=== PATIENT | female | born 1990 | race Caucasian/White ===

== ENCOUNTER 2021-03-14 05:03 | Inpatient (IN) ==
[2021-03-14 05:49] LABS: Basophils % 0.6 %; Eosinophils # 0.1 K/mcL (0.0-0.6); Eosinophils % 1.8 %; Hematocrit 40.6 % (35.3-44.9); Hemoglobin 13.4 g/dL (11.5-15.4); Immature Granulocytes % 0.1 % (0-4); Lymphocytes # 2.1 K/mcL (0.6-4.6); Lymphocytes % 29.4 %; Mean Corpuscular Hemoglobin 31.8 pg (28.0-33.3); Mean Corpuscular Volume 96.4 fL (83.0-100.0); Mean Platelet Volume 9.7 fL (9.4-12.4); Monocytes # 0.6 K/mcL (0.0-1.3); Monocytes % 7.6 %; Neutrophils # 4.4 K/mcL (1.6-8.9); Platelet Count 206 K/mcL (140-400); Red Blood Count 4.21 M/mcL (3.82-4.97); Red Cell Distribution Width 13.5 % (11.5-14.5); Segmented Neutrophils % 60.5 %; White Blood Count 7.2 K/mcL (4.3-11.1)
[2021-03-14 06:08] LABS: Amphetamine Screen,Urine Negative ng/mL (Cutoff=1000); Barbiturate Screen,Urine Negative ng/mL (Cutoff=200)
[2021-03-14 06:09] LABS: Benzodiazepines Screen,Urine Negative ng/mL (Cutoff=300); Cannabinoid Screen,Urine Negative ng/mL (Cutoff = 50); Cocaine Screen,Urine Negative ng/mL (Cutoff= 300); Opiate Screen,Urine Negative ng/mL (Cutoff=300); Phencyclidine Screen,Urine Negative ng/mL (Cutoff=25)
[2021-03-14 06:13] LABS: Acetaminophen < 10 mcg/mL (10-20); Alanine Aminotransferase 6 Units/L (7-52); Albumin/Globulin Ratio 1.7 (1.1-2.2); Alkaline Phosphatase 70 Units/L (34-104); Aspartate Amino Transferase 11 Units/L (13-39); BUN/Creatinine Ratio 10 (6-26); Bilirubin,Indirect 0.2 mg/dL (0.0-1.0); Bilirubin,Total 0.2 mg/dL (0.3-1.0); Blood Urea Nitrogen 9 mg/dL (6-20); Calcium 8.8 mg/dL (8.6-10.3); Carbon Dioxide 24 mEq/L (23-29); Chloride 110 mEq/L (98-107); Globulin 2.4 g/dL (2.4-3.5); Glucose 92 mg/dL (70-105); Osmolality,Calculated 296 (280-300); Potassium 3.8 mEq/L (3.5-5.1); Salicylate < 2.5 mg/dL (15.0-30.0); Sodium 144 mEq/L (136-145); Total Protein 6.4 g/dL (6.4-8.9); eGFR For African Americans > 60 (> 60); eGFR For Non-African Americans > 60 (> 60)
[2021-03-14 06:15] LABS: Bilirubin,Urine Negative (Negative); Blood,Urine Negative (Negative); Clarity,Urine Clear (Clear); Color,Urine Colorless (Yellow); Glucose,Urine (UA) Normal (Normal); Ketones,Urine Negative (Negative); Leukocyte Esterase,Urine Negative (Negative); Nitrite,Urine Negative (Negative); PH,Urine 5.5 pH Units (5.0-8.0); Protein,Urine Negative (Neg-Trace); Specific Gravity,Urine 1.006 (1.010-1.025); Urobilinogen,Urine Normal (Normal)
[2021-03-14] MEDS ORDERED: 0.9 % Sodium Chloride 1,000 ML ONE (06:26)
[2021-03-14] MEDS ORDERED: 0.9 % Sodium Chloride 1,000 ML IV ONE (06:31)
[2021-03-14] MEDS ORDERED: *HR* Midazolam HCl 5 MG/5 ML VIAL IVP ONE (06:46)
[2021-03-14] MEDS ORDERED: *HR* FentaNYL (PF) 100 MCG/2 ML VIAL ONE (06:47)
[2021-03-14] MEDS: FentaNYL (PF) 1,000 MCG/100 ML IV.SOLN IVC SCH ×2 (06:52→14:04)
[2021-03-14] MEDS ORDERED: *HR* FentaNYL (PF) 100 MCG/2 ML VIAL IVP ONE (06:59)
[2021-03-14 08:37] LABS: Ethanol 138 mg/dL (Less than 10)
[2021-03-14] MEDS ORDERED: *HR* LORazepam 2 MG/ML VIAL IVP STA (09:30)
[2021-03-14] MEDS ORDERED: Artificial Tears SOLN 15 ML BOTTLE BOTH EYES PRN (11:04)
[2021-03-14] MEDS: Pantoprazole 40 MG VIAL IVP SCH (12:01)
[2021-03-14] MEDS: Artificial Tears SOLN 15 ML BOTTLE BOTH EYES SCH ×4 (12:01→23:41)
[2021-03-14 14:10] LABS: Adenovirus Not Detected (Not Detect); Bordetella Pertussis Not Detected (Not Detect); Chlamydophila pneumoniae Not Detected (Not Detect); Coronavirus 229E Not Detected (Not Detect); Coronavirus HKU1 Not Detected (Not Detect); Coronavirus NL63 Not Detected (Not Detect); Coronavirus OC43 Not Detected (Not Detect); Human Metapneumovirus Not Detected (Not Detect); Human Rhinovirus/Enterovirus Not Detected (Not Detect); Influenza A Subtype 2009 H1 Not Detected (Not Detect); Influenza B Not Detected (Not Detect); Mycoplasma pneumoniae Not Detected (Not Detect); Parainfluenza Virus 1 Not Detected (Not Detect); Parainfluenza Virus 2 Not Detected (Not Detect); Parainfluenza Virus 3 Not Detected (Not Detect); Parainfluenza Virus 4 Not Detected (Not Detect); Respiratory Syncytial Virus Not Detected (Not Detect); SARS-CoV-2 Not Detected (Not Detect)
[2021-03-14] MEDS ORDERED: Budesonide/Formoterol 160/4.5 1 PUFF INH IH ONE (19:23)
[2021-03-14] MEDS: Budesonide/Formoterol 160/4.5 1 PUFF INH IH SCH (19:25)
[2021-03-14] MEDS: Chlorhexidine Rinse 15 ML MOUTHWASH MM SCH (20:13)
[2021-03-15] MEDS: Artificial Tears SOLN 15 ML BOTTLE BOTH EYES SCH ×2 (03:50→08:00)
[2021-03-15] MEDS: FentaNYL (PF) 1,000 MCG/100 ML IV.SOLN IVC SCH (03:52)
[2021-03-15 04:33] LABS: ABG Base Excess -1 mEq/L (-2 to 3); ABG HCO3 24 mEq/L (21-27); ABG Oxygen Saturation 98 % (95-98); ABG PCO2 38 mmHg (35-45); ABG PH 7.41 pH Units (7.32-7.45); ABG PO2 101 mmHg (85-104); ABG TCO2 25 mEq/L (20-26); Blood Gas Modality ASSIST CONTROL; Blood Gas VT 450 cc
[2021-03-15 04:50] LABS: Basophils % 0.2 %; Eosinophils # 0.1 K/mcL (0.0-0.6); Eosinophils % 0.6 %; Hematocrit 36.9 % (35.3-44.9); Hemoglobin 12.4 g/dL (11.5-15.4); Immature Granulocytes % 0.3 % (0-4); Lymphocytes # 1.6 K/mcL (0.6-4.6); Lymphocytes % 14.6 %; Mean Corpuscular HGB Conc 33.6 g/dL (31.6-35.5); Mean Corpuscular Hemoglobin 31.7 pg (28.0-33.3); Mean Corpuscular Volume 94.4 fL (83.0-100.0); Mean Platelet Volume 9.9 fL (9.4-12.4); Monocytes # 1.1 K/mcL (0.0-1.3); Monocytes % 9.6 %; Neutrophils # 8.2 K/mcL (1.6-8.9); Platelet Count 191 K/mcL (140-400); Red Blood Count 3.91 M/mcL (3.82-4.97); Red Cell Distribution Width 13.8 % (11.5-14.5); Segmented Neutrophils % 74.7 %
[2021-03-15 05:10] LABS: Alanine Aminotransferase 6 Units/L (7-52); Albumin 3.5 g/dL (3.5-5.7); Albumin/Globulin Ratio 1.4 (1.1-2.2); Alkaline Phosphatase 65 Units/L (34-104); Aspartate Amino Transferase 10 Units/L (13-39); BUN/Creatinine Ratio 12 (6-26); Bilirubin,Total 0.8 mg/dL (0.3-1.0); Blood Urea Nitrogen 9 mg/dL (6-20); Calcium 8.5 mg/dL (8.6-10.3); Carbon Dioxide 24 mEq/L (23-29); Chloride 111 mEq/L (98-107); Globulin 2.5 g/dL (2.4-3.5); Glucose 91 mg/dL (70-105); Osmolality,Calculated 288 (280-300); Potassium 3.9 mEq/L (3.5-5.1); Sodium 140 mEq/L (136-145); eGFR For African Americans > 60 (> 60); eGFR For Non-African Americans > 60 (> 60)
[2021-03-15] MEDS: Budesonide/Formoterol 160/4.5 1 PUFF INH IH SCH ×2 (07:18→19:54)
[2021-03-15] MEDS: Dexmedetomidine HCl 400 MCG/100 ML MLS IVC SCH ×2 (07:53→08:23)
[2021-03-15] MEDS: Chlorhexidine Rinse 15 ML MOUTHWASH MM SCH (08:00)
[2021-03-15] MEDS: Pantoprazole 40 MG VIAL IVP SCH (08:00)
[2021-03-15] MEDS ORDERED: Acetaminophen 325 MG TABLET PO PRN ×2 (10:29→16:26)
[2021-03-15] MEDS ORDERED: Chloraseptic Spray 177 ML BOTTLE MM PRN ×2 (10:53→16:26)
[2021-03-15] MEDS ORDERED: 0.9 % Sodium Chloride 1,000 ML ONE (17:12)
[2021-03-15] MEDS: Nicotine 14 MG PATCH.TD24 TD SCH (18:24)
[2021-03-16] MEDS: Budesonide/Formoterol 160/4.5 1 PUFF INH IH SCH ×2 (07:55→19:51)
[2021-03-16 08:22] LABS: VBG HCO3 26 mEq/L (21-27); VBG PCO2 45 mmHg (41-51); VBG PH 7.37 pH Units (7.32-7.42); VBG PO2 70 mmHg (25-50)
[2021-03-16 09:05] LABS: Acetaminophen < 10 mcg/mL (10-20); Alanine Aminotransferase 8 Units/L (7-52); Albumin 3.8 g/dL (3.5-5.7); Albumin/Globulin Ratio 1.4 (1.1-2.2); Alkaline Phosphatase 72 Units/L (34-104); Aspartate Amino Transferase 14 Units/L (13-39); Bilirubin,Direct 0.1 mg/dL (0.0-0.2); Bilirubin,Indirect 0.5 mg/dL (0.0-1.0); Bilirubin,Total 0.6 mg/dL (0.3-1.0); Globulin 2.7 g/dL (2.4-3.5); Total Protein 6.5 g/dL (6.4-8.9)
[2021-03-16 09:17] LABS: Thyroid Stimulating Hormone 2.692 mcIU/mL (0.340-5.600)
[2021-03-16] MEDS: Nicotine 14 MG PATCH.TD24 TD SCH (10:59)
[2021-03-16] MEDS ORDERED: hydrOXYzine pamoate 25 MG CAPSULE PO PRN (17:54)
[2021-03-17 01:06] VITALS: BP 116/66; PULSE 89; TEMP 98.2; O2SAT 98
[2021-03-17] MEDS ORDERED: *HR* Enoxaparin 40 MG/0.4 ML SYRINGE SQ SCH (07:00)
[2021-03-17] MEDS: Nicotine 14 MG PATCH.TD24 TD SCH (09:15)
[2021-03-17] MEDS: Budesonide/Formoterol 160/4.5 1 PUFF INH IH SCH (11:34)
== END 2021-03-17 13:50 | DRG 917 ==
LOC: EMEROOARM 05:03 → SUATTDRO 07:44 → ICNU 07:44 → 3ANU 03-15 16:12
PROVIDERS: ADMIT Family Medicine; ATTEND Pharmacist

== ENCOUNTER 2021-03-17 13:53 | Inpatient (IN) ==
[2021-03-17] MEDS ORDERED: *HR* LORazepam 2 MG/ML VIAL IM PRN (13:58)
[2021-03-17] MEDS ORDERED: Haloperidol Lactate 5 MG/ML VIAL IM PRN (13:58)
[2021-03-17] MEDS ORDERED: Acetaminophen 325 MG TABLET PO PRN (13:58)
[2021-03-17] MEDS ORDERED: haloperidoL 5 MG TABLET PO PRN (13:58)
[2021-03-17] MEDS: Nicotine 14 MG PATCH.TD24 TD SCH (15:23)
[2021-03-17] MEDS: *HR* LORazepam 1 MG TABLET PO PRN (15:24)
[2021-03-17] MEDS: Magic Mouthwash 10 ML UD Cup PO SCH (21:51)
[2021-03-17] MEDS: traZODone 50 MG TABLET PO PRN ×2 (23:03→23:55)
[2021-03-17] MEDS: hydrOXYzine pamoate 25 MG CAPSULE PO PRN (23:55)
[2021-03-18] MEDS: Nicotine 14 MG PATCH.TD24 TD SCH (11:35)
[2021-03-18] MEDS: Magic Mouthwash 10 ML UD Cup PO SCH ×2 (11:37)
[2021-03-18] MEDS: *HR* LORazepam 1 MG TABLET PO PRN (16:26)
[2021-03-18] MEDS: hydrOXYzine pamoate 25 MG CAPSULE PO PRN (19:09)
[2021-03-18] MEDS: traZODone 50 MG TABLET PO PRN (21:00)
[2021-03-19] MEDS: Nicotine 14 MG PATCH.TD24 TD SCH (09:12)
[2021-03-19] MEDS: Magic Mouthwash 10 ML UD Cup PO SCH ×5 (11:45→17:20)
[2021-03-19] MEDS: hydrOXYzine pamoate 25 MG CAPSULE PO PRN (14:45)
[2021-03-19 19:51] LABS: Hemoglobin 13.1 g/dL (11.5-15.4); Mean Corpuscular HGB Conc 32.8 g/dL (31.6-35.5); Mean Corpuscular Volume 94.8 fL (83.0-100.0); Mean Platelet Volume 10.1 fL (9.4-12.4); Platelet Count 215 K/mcL (140-400); Red Blood Count 4.22 M/mcL (3.82-4.97); Red Cell Distribution Width 13.2 % (11.5-14.5); White Blood Count 9.3 K/mcL (4.3-11.1)
[2021-03-19 20:05] LABS: INR 1.1; Prothrombin Time 13.1 Seconds (9.4-12.1)
[2021-03-19 20:13] LABS: Alanine Aminotransferase 10 Units/L (7-52); Albumin 3.8 g/dL (3.5-5.7); Albumin/Globulin Ratio 1.1 (1.1-2.2); Alkaline Phosphatase 72 Units/L (34-104); Aspartate Amino Transferase 13 Units/L (13-39); BUN/Creatinine Ratio 19 (6-26); Bilirubin,Total 0.4 mg/dL (0.3-1.0); Blood Urea Nitrogen 15 mg/dL (6-20); Calcium 9.8 mg/dL (8.6-10.3); Carbon Dioxide 24 mEq/L (23-29); Chloride 105 mEq/L (98-107); Globulin 3.6 g/dL (2.4-3.5); Glucose 89 mg/dL (70-105); Osmolality,Calculated 284 (280-300); Potassium 4.2 mEq/L (3.5-5.1); Sodium 137 mEq/L (136-145); Total Protein 7.4 g/dL (6.4-8.9); eGFR For African Americans > 60 (> 60); eGFR For Non-African Americans > 60 (> 60)
[2021-03-19] MEDS: Doxycycline 100 MG CAPSULE PO SCH (20:26)
[2021-03-19] MEDS: *HR* LORazepam 0.5 MG TABLET PO PRN (20:26)
[2021-03-19] MEDS: traZODone 50 MG TABLET PO PRN (20:27)
[2021-03-20 00:35] LABS: Chlamydia Trachomatis DNA Ur NOT DETECTED (Not Detect)
[2021-03-20] MEDS: traZODone 50 MG TABLET PO PRN (01:07)
[2021-03-20] MEDS: Nicotine 14 MG PATCH.TD24 TD SCH (08:35)
[2021-03-20] MEDS: Doxycycline 100 MG CAPSULE PO SCH (08:36)
[2021-03-20] MEDS: Magic Mouthwash 10 ML UD Cup PO SCH ×3 (08:38→16:47)
[2021-03-20 09:52] VITALS: BP 108/73; PULSE 82; TEMP 97.6; O2SAT 97
[2021-03-20] MEDS: *HR* LORazepam 0.5 MG TABLET PO PRN ×2 (13:29→16:50)
[2021-03-20] MEDS: hydrOXYzine pamoate 25 MG CAPSULE PO PRN (14:21)
== END 2021-03-20 17:35 | disposition home or self-care (01) | DRG 885 ==
LOC: 1ANU 13:53
PROVIDERS: ADMIT Psychiatry & Neurology Psychiatry; ATTEND Psychiatry & Neurology Psychiatry